=== PATIENT | male | born 1945 | race African-American/Black ===

== ENCOUNTER 2018-03-24 04:06 | Emergency (ER) | payer MEDICARE, OTHER ==
[~2018-03-24] VITALS: Ht 185.4 cm; Wt 121.4 kg
[~2018-03-24 04:06] MED LIST: ALLO100T PO; ASPI-1188 PO; BUME1TAB17 PO; GABA-531 PO; HYDR25TA PO; INSLAN SQ; LISI10TA7 PO; METF-960 PO; METO25TA6 PO; NIFE60TA81 PO; SIMV-261 PO
[2018-03-24 04:18] LABS: GLUCOSE,POINT OF CARE 131 MG/DL (70-110)
[2018-03-24] MEDS ORDERED: METO25 PO (04:18)
[2018-03-24] MEDS ORDERED: CHOL50004 PO (04:18)
[2018-03-24] MEDS ORDERED: COMB5OS OU (04:18)
[2018-03-24] MEDS ORDERED: FLUO5DRO3 OP (04:18)
[2018-03-24] MEDS ORDERED: GABA-531 PO (04:18)
[2018-03-24] MEDS ORDERED: CIPR-278 PO (04:18)
[2018-03-24] MEDS ORDERED: ASCO500 PO (04:18)
[2018-03-24 05:21] LABS: BASOPHILS % (AUTO) 1.2 % (0.0-2.0); EOSINOPHILS % (AUTO) 3.6 % (1.0-6.0); HEMATOCRIT 46.2 % (41-53); HEMOGLOBIN 14.6 g/dL (13.5-17.5); LYMPHOCYTES # (AUTO) 1.6 K/uL (1.0-4.8); MEAN CORPUSCULAR HEMOGLOBIN 23.4 pg (26.0-34.0); MEAN CORPUSCULAR HGB CONC 31.6 G/dL (31.0-37.0); MEAN CORPUSCULAR VOLUME 74 fL (80-100); MONOCYTES # (AUTO) 0.5 K/uL (0.1-1.0); MONOCYTES % (AUTO) 9.9 % (2.0-9.0); NEUTROPHILS # (AUTO) 2.9 K/uL (1.8-7.7); NEUTROPHILS % (AUTO) 55.3 % (40.0-70.0); PLATELET COUNT (AUTO) 178 K/uL (150-450); RED BLOOD CELL COUNT(AUTO) 6.25 MIL/uL (4.50-5.90); RED CELL DISTRIBUTION WIDTH 14.8 % (11.5-14.5)
[2018-03-24 05:30] LABS: ANION GAP 5 mmol/L (8-16); CALCIUM, TOTAL 9.6 mg/dL (8.8-10.5); CARBON DIOXIDE 34 mmol/L (22-29); CHLORIDE 101 mmol/L (98-107); CREATININE 1.14 mg/dL (0.60-1.30); GLOMERULAR FILTR. RATE CALC > 60 mL/min (>60); GLUCOSE,RANDOM 137 mg/dL (70-110); POTASSIUM 3.7 mmol/L (3.5-5.1); SODIUM SERUM 140 mmol/L (136-145); UREA NITROGEN, BLOOD 14 mg/dL (7-18)
[2018-03-24 05:35] LABS: ALANINE AMINOTRANSFERASE 18 U/L (12-78); ALBUMIN 3.7 g/dL (3.4-5.0); ALKALINE PHOSPHATASE 78 U/L (46-116); ASPARTATE AMINOTRANSFERASE 14 U/L (15-37); BILIRUBIN,TOTAL 0.3 mg/dL (0.1-1.0); LIPASE 142 U/L (73-393); TOTAL PROTEIN, SERUM 8.2 g/dL (6.4-8.2)
[2018-03-24 05:40] LABS: B-TYPE NATRIURETIC PEPTIDE 44 pg/mL (0-100)
[2018-03-24 06:11] VITALS: BP 138/76
== END 2018-03-24 06:32 | disposition home or self-care (01) ==
LOC: EMS 04:06
DX: R06.02 Shortness of breath (principal); M25.511 Pain in right shoulder; M25.512 Pain in left shoulder; I11.0 Hypertensive heart disease with heart failure; I50.9 Heart failure, unspecified; E11.9 Type 2 diabetes mellitus without complications; E78.00 Pure hypercholesterolemia, unspecified; Z79.84 Long term (current) use of oral hypoglycemic drugs; Z79.82 Long term (current) use of aspirin; Z79.899 Other long term (current) drug therapy
CPT/HCPCS: 93005

== ENCOUNTER → 2018-05-21 | Outpatient (CLI) | payer MEDICARE, OTHER ==
[~2018-05-21] VITALS: Ht 203.2 cm; Wt 116.5 kg
[~2018-05-21] MED LIST changes: +APIX5TAB PO; +ASCO500 PO; -BUME1TAB17 PO; +CHOL50004 PO; +COMB5OS OU; +FLUO5DRO3 OP; +METO25 PO; -METO25TA6 PO
[2018-05-21 15:01] VITALS: BP 124/61
== END | disposition home or self-care (01) ==
LOC: SRCNTR 14:57
PROVIDERS: ATTEND Internal Medicine Critical Care Medicine
DX: E11.9 Type 2 diabetes mellitus without complications (principal); I11.0 Hypertensive heart disease with heart failure; I50.9 Heart failure, unspecified; M10.9 Gout, unspecified
CPT/HCPCS: G0463

== ENCOUNTER → 2018-08-02 | Outpatient (CLI) | payer MEDICARE, OTHER | END | disposition home or self-care (01) | LOC: RADPV 11:25 | PROVIDERS: ATTEND Internal Medicine Critical Care Medicine | DX: M19.031 Primary osteoarthritis, right wrist (principal) ==

== ENCOUNTER → 2018-09-06 | Outpatient (CLI) | payer MEDICARE, OTHER ==
[~2018-09-06] MED LIST changes: -ASPI-1188 PO; +ASPI-1419 PO
== END | disposition home or self-care (01) ==
LOC: RADMN 12:45
PROVIDERS: ATTEND Internal Medicine Critical Care Medicine
DX: J43.9 Emphysema, unspecified (principal); J47.9 Bronchiectasis, uncomplicated; R91.8 Other nonspecific abnormal finding of lung field; M46.00 Spinal enthesopathy, site unspecified; K80.20 Calculus of gallbladder without cholecystitis without obstruction; M77.32 Calcaneal spur, left foot
CPT/HCPCS: 71250

== ENCOUNTER → 2019-05-09 | Outpatient (CLI) | payer MEDICARE, OTHER ==
[~2019-05-09] MED LIST changes: -ASPI-1419 PO; +ASPI-1522 PO; +CHOL125C2 PO; -CHOL50004 PO
[2019-05-09 09:59] VITALS: BP 139/72
== END | disposition home or self-care (01) ==
LOC: SRCNTR 09:58
PROVIDERS: ATTEND Internal Medicine Critical Care Medicine
DX: I11.0 Hypertensive heart disease with heart failure (principal); I50.31 Acute diastolic (congestive) heart failure; I26.99 Other pulmonary embolism without acute cor pulmonale; R91.8 Other nonspecific abnormal finding of lung field; E66.01 Morbid (severe) obesity due to excess calories; E11.9 Type 2 diabetes mellitus without complications; M10.9 Gout, unspecified
CPT/HCPCS: G0463

== ENCOUNTER → 2019-05-30 | Outpatient (CLI) | payer MEDICARE, OTHER | END | disposition home or self-care (01) | LOC: RADMN 10:10 | PROVIDERS: ATTEND Internal Medicine Critical Care Medicine | DX: R91.1 Solitary pulmonary nodule (principal); J98.4 Other disorders of lung; I51.7 Cardiomegaly; I25.10 Atherosclerotic heart disease of native coronary artery without angina pectoris; M47.814 Spondylosis without myelopathy or radiculopathy, thoracic region; K80.20 Calculus of gallbladder without cholecystitis without obstruction | CPT/HCPCS: 71250 ==

== ENCOUNTER 2019-06-06 15:28 | Emergency (ER) | payer MEDICARE, OTHER ==
[~2019-06-06] VITALS: Ht 172.7 cm; Wt 100.0 kg
[2019-06-06] MEDS ORDERED: PredniSONE 20 MG TABLET PO ONE (16:00)
[2019-06-06] MEDS ORDERED: DiphenhydrAMINE HCL 25 MG CAPSULE PO ONE (16:00)
[2019-06-06 17:20] VITALS: BP 149/89
== END 2019-06-06 17:26 | disposition home or self-care (01) ==
LOC: EMS 15:29
DX: T78.3XXA Angioneurotic edema, initial encounter (principal); E11.9 Type 2 diabetes mellitus without complications; I11.0 Hypertensive heart disease with heart failure; I50.9 Heart failure, unspecified; E78.00 Pure hypercholesterolemia, unspecified; Z79.4 Long term (current) use of insulin; Z79.82 Long term (current) use of aspirin; Z79.84 Long term (current) use of oral hypoglycemic drugs; Y92.89 Other specified places as the place of occurrence of the external cause
CPT/HCPCS: 82962; 99283; J7512

== ENCOUNTER → 2019-08-07 | Outpatient (CLI) | payer MEDICARE, OTHER ==
[~2019-08-07] VITALS: Ht 172.7 cm; Wt 121.7 kg
[~2019-08-07] MED LIST changes: +GABA-1181 PO; -GABA-531 PO
[2019-08-07 10:55] VITALS: BP 127/62
== END | disposition home or self-care (01) ==
LOC: SRCNTR 10:40
PROVIDERS: ATTEND Internal Medicine Critical Care Medicine
DX: T78.3XXA Angioneurotic edema, initial encounter (principal); T46.4X5A Adverse effect of angiotensin-converting-enzyme inhibitors, initial encounter; R91.1 Solitary pulmonary nodule; I11.0 Hypertensive heart disease with heart failure; I50.9 Heart failure, unspecified; M10.9 Gout, unspecified; Z79.82 Long term (current) use of aspirin; Z79.899 Other long term (current) drug therapy; Z98.890 Other specified postprocedural states
CPT/HCPCS: G0463

== ENCOUNTER 2020-02-17 16:43 | Emergency (ER) | payer MEDICARE, OTHER ==
[~2020-02-17 16:43] MED LIST changes: -ALLO100T PO; +ALLO100T2 PO; +ASPI-1111 PO; -ASPI-1522 PO; -FLUO5DRO3 OP; +FLUO5DRO3 OU; +HYDR-1475 PO; -HYDR25TA PO; +LISI-661 PO; -LISI10TA7 PO; +NIFE-39 PO; -NIFE60TA81 PO
[2020-02-17] MEDS ORDERED: EPINEPHrine 1:10,000 [1 MG/10 ML] SYRINGE ONE (18:01)
== END 2020-02-17 23:58 | disposition expired ==
LOC: EMS 16:58
DX: I46.9 Cardiac arrest, cause unspecified (principal)
CPT/HCPCS: 31500; 36556; 92950; 99285; J0171